=== PATIENT | female | born 1945 | race Caucasian/White ===

== ENCOUNTER 2020-02-26 06:17 | Emergency (ER) | payer MEDICARE, SELFPAY ==
--- NOTE | ~2020-02-26 | XR_ITS ---
EXAMINATION: XR chest 1V portable DATE: 02/26/2020 06:49 INDICATION: Cough, fever and chills TECHNIQUE: frontal view of the chest was obtained. COMPARISON: Chest radiograph dated 04/09/[address] dated 07/09/2019 FINDINGS: Calcified pleural plaques project over the bilateral mid lung zones. Chronic linear and bandlike disc oid atelectasis/scarring at the bilateral lower lung zones. There are few scattered calcified pulmona ry nodules along with calcified bilateral hilar and mediastinal lymph nodes consistent with old granu lomatous disease. The cardiomediastinal silhouette is normal. Atherosclerotic aorta. Moderate thoraci c and upper lumbar spondylosis. IMPRESSION: 1. Chronic opacities in the bilateral mid to lower lung zones corresponding to calcified pleural plaq ues and basilar atelectasis/scarring. No definitive acute cardiopulmonary disease. Reviewed, dictated and finalized at location A. IMPRESSION: 1. Chronic opacities in the bilateral mid to lower lung zones corresponding to calcified pleural plaques and basilar atelectasis/scarring. No definitive acute cardiopulmonary disease.
[2020-02-26 06:29] VITALS: BP 167/104; PULSE 119; RESP 15; TEMP 37.2; O2SAT 97
--- NOTE | 2020-02-26 06:38 | ED.FEVER ---
HPI - Fever General Chief Complaint: Fever Stated Complaint: fever, cough, chills Time Seen by Provider: 02/26/20 06:23 History of Present Illness HPI Narrative: Patient is a 74-year-old female who presents the ER with reports of fever. Ongoing for last 24 hours. Is high as 102 ?F. Associated with rigors of the last up to 20 minutes. She is treated her fever with Tylenol 500 mg and aspirin alternating. Patient reports that she has been having dysuria and urinary frequency for the last 2 weeks. She has been taking cranberry juice without relief of symptoms. Patient has history of COPD reports chronic cough and chronic shortness of breath. Neither of these symptoms have worsened. Patient reports she has not left her house since February 01 and the only contact she has had is a family member who dropped off groceries. No rhinorrhea/sore throat/myalgias. Related Data Allergies Allergy/AdvReac Type Severity Reaction Status Date / Time cefaclor Allergy Unknown Verified 09/17/16 17:02 felodipine Allergy Unknown Verified 09/17/16 17:02 levofloxacin Allergy Unknown Verified 09/17/16 17:02 verapamil Allergy Unknown Verified 09/17/16 17:02 MOXIFLOXACIN HCL Allergy Unknown Uncoded 09/17/16 17:02 Review of Systems Review of Systems: All systems reviewed & are unremarkable except as noted in HPI and below Constitutional: Constitutional: Reports chills and Reports fever(s) ENT: Denies nasal congestion and Denies sore throat Respiratory: Respiratory: Denies cough, Denies dyspnea and Denies wheezing Gastrointestinal: Gastrointestinal: Denies abdominal pain, Denies nausea and Denies vomiting Genitourinary: Genitourinary: Denies hematuria, Reports nocturia, Reports dysuria and Denies flank pain [facility] Past Medical History Medical History (Updated 02/26/20 @ 08:12 by Thad Rush MD) COPD (chronic obstructive pulmonary disease) Cystocele Diverticulitis Hypertension Rectocele Surgical History Surgical History (Updated 02/26/20 @ 06:42 by Thad Rush MD) H/O cardiac catheterization H/O: hysterectomy History of tonsillectomy Family History Family History (Updated 04/14/19 @ 11:46 by DOCTOR UNKNOWN) Mother Family history of diabetes mellitus in first degree relative Family history of heart disease in male family member before age 55 Patient's mother is Family history of emphysema Diabetes mellitus Family history of cardiovascular disease, Onset Age: 73 Acute myocardial infarction Father Patient's father is Family history of lung cancer Family history of malignant neoplasm, Onset Age: 36 Patient's father is in good health Sibling Patient's brother is Family history of lung cancer Family history of primary malignant neoplasm of liver Other Hypertension Social History Social History Smoking status: Heavy tobacco smoker Second hand tobacco smoke exposure: No Alcohol intake: never Exam Narrative: Exam Narrative: GENERAL: Well-appearing, well-nourished, and in no acute distress. HEAD: Normocephalic, atraumatic. CHEST: Clear to auscultation. No respiratory distress. HEART: Tachycardic and regular. Normal peripheral pulses. ABDOMEN: Soft, nontender, nondistended. No CVA tenderness. EXTREMITIES: Normal range of motion. No edema. SKIN: Warm, dry, no rash. NEURO: Alert and oriented x3. PSYCH: Normal mood and affect. Course [employer] Physician Supervision Informed of results. Tachycardia improved with IV fluid. First dose of Bactrim here, will have pt hold home BP meds due to potential elevation in k+. Discharge home. Vital Signs Vital signs: Vital Signs Temperature 98.9 F 02/26/20 06:29 Pulse Rate 119 H 02/26/20 06:29 Respiratory Rate 15 02/26/20 06:29 Blood Pressure 167/104 H 02/26/20 06:29 Pulse Oximetry 97 02/26/20 06:29 Temperature 98.9 F 02/26/20 06:29 Pulse Rate 119 H 02/26/20 06:29 Respirato
[2020-02-26 06:54] LABS: Basophils Absolute Auto 0.1 K/mm3 (0.0-0.1); Basophils Percent Auto 0.4 % (0.2-1.2); Eosinophils Percent Auto 0.3 % (0-4.4); Hematocrit 51.2 % (37.0-47.0); Hemoglobin 17.5 g/dL (12.0-15.0); Immature Granulocyte Absolute 0.05 K/mm3 (0.00-0.031); Immature Granulocyte Percent A 0.4 % (0-0.5); Lymphocytes Absolute Auto 1.59 K/mm3 (0.9-3.2); Mean Corpuscular HGB Conc 34.2 g/dl (32-36); Mean Corpuscular Hemoglobin 30.6 pg (26-34); Mean Corpuscular Volume 89.5 fl (80-100); Mean Platelet Volume 9.5 fl (7.4-10.4); Monocytes Absolute Auto 1.2 K/mm3 (0.1-0.6); Monocytes Percent Auto 10.7 % (2.6-8.5); Neutrophils Absolute Auto 8.5 K/mm3 (1.3-6.7); Neutrophils Percent Auto 74.2 % (45.5-73.1); Platelet Count Result 207 k/mm3 (150-375); Red Blood Count 5.72 M/mm3 (4.2-5.4); Red Cell Distribution Width 13.2 % (11.5-14.5); White Blood Count 11.4 K/mm3 (4.5-10.0)
[2020-02-26] MEDS: SODIUM CHLORIDE 0.9% IV 1,000 ML 999 ML IV CONT (06:56)
[2020-02-26 07:04] LABS: Add Urine Microscopic? YES; Appearance Urine Cloudy (Clear); Bacteria Urine 1+ /hpf; Bilirubin Urine Negative (Negative); Blood Urine 2+ (Negative); Color Urine Yellow (Yellow); Glucose Urine UA Negative (Negative); Ketones Urine Trace mg/dL (Negative); Leukocyte Esterase Ur 3+ LEU/UL (Negative); Nitrate Urine Negative (Negative); Protein Urine 2+ mg/dL (Negative); RBC Urine >75 /hpf (0-2); Specific Grav Ur 1.012 (1.001-1.035); Squamous Epithelial Cell Urine Many /hpf (Few); Urobilinogen Urine Negative mg/dL (<2.0); WBC Clumps Urine Present /HPF; WBC Urine >75 /hpf
[2020-02-26 07:08] LABS: Blood Urea Nitrogen 12 mg/dL (7-17); Calcium 9.5 mg/dL (8.4-10.2); Carbon Dioxide 29 mmol/L (22-30); Chloride 100 mmol/L (98-107); Estimated Glomerular Filt Rate > 60; Glucose 116 mg/dL (65-105); Potassium 3.8 mmol/L (3.4-5.0); Sodium 135 mmol/L (137-145)
[2020-02-26 08:22] VITALS: BP 137/77; PULSE 93; RESP 20; O2SAT 97
== END 2020-02-26 08:41 | disposition home or self-care (01) ==
PROVIDERS: Emergency Provider Emergency Medicine; PCP Family Medicine
DX: N39.0 Urinary tract infection, site not specified (principal); J44.9 Chronic obstructive pulmonary disease, unspecified; I10 Essential (primary) hypertension; F17.200 Nicotine dependence, unspecified, uncomplicated
CPT/HCPCS: 36415; 71045; 80048; 81001; 85025; 87077; 87086; 87088; 87186; 96360; 99283; A9270; J7030

== ENCOUNTER 2021-02-02 08:54 | Outpatient (CLI) | payer MEDICARE, SELFPAY ==
--- NOTE | ~2021-02-02 | XR_ITS ---
XR chest 2V 02/02/2021 09:12 Indication: Shortness of breath Procedure: PA and lateral views of the chest Comparison: 04/09/2017 Findings: Heart size is normal. There are bilateral pleural calcifications, consistent with previous asbestos exposure. There are a few scattered calcified pulmonary nodules, consistent with chronic gra nulomatous disease. There is atherosclerosis of the aorta. No acute focal air space disease, pulmonar y edema, pleural effusion or suspected pneumothorax. There are chronic infiltrates of the mid and low er lung zones. The lungs are hyperinflated which is consistent with, but not diagnostic of chronic ob structive pulmonary disease. Impression: 1: No acute cardiopulmonary disease. Reviewed, dictated and finalized at location B. Impression: 1: No acute cardiopulmonary disease.
== END 2021-02-02 08:55 | disposition home or self-care (01) ==
LOC: ANHIMG 09:01
PROVIDERS: PCP Family Medicine; Visit Provider Physician Assistant
DX: R06.02 Shortness of breath (principal); I70.0 Atherosclerosis of aorta
CPT/HCPCS: 71046

== ENCOUNTER 2021-03-01 07:25 | Outpatient (CLI) | payer MEDICARE, SELFPAY ==
--- NOTE | ~2021-03-01 | CT_ITS ---
EXAMINATION: CT lung screening DATE: 03/01/2021 07:51 INDICATION: Personal history of nicotine dependence TECHNIQUE: Computed tomography (CT) of the chest was performed without intravenous contrast. The dose -length product was 55.56 mGy-cm. Automated exposure control and iterative reconstruction technique w ere employed. COMPARISON: CT dated 07/09/2019 FINDINGS: There are small scattered calcified bilateral pleural plaques consistent with previous asbe stos exposure. There are scattered calcified pulmonary nodules, consistent with chronic granulomatous disease. There are calcified mediastinal and hilar lymph nodes, also consistent with chronic granulo matous disease. No significant pleural or pericardial effusion. No thoracic lymphadenopathy. There is a stable 7 mm fissural nodule on the right, likely benign. There is lower lobe bronchiectasis. There is lingular and bilateral lower lobe atelectasis. There is moderate emphysema. There is atherosclero sis of the aorta and coronary arteries. The upper abdomen is unremarkable. No lytic or blastic lesion s. IMPRESSION: 1. Lung-RADS category 2: Benign appearance or behavior. Continue annual screening with noncontrast lo w-dose chest CT in 12 months. Reviewed, dictated and finalized at location B. IMPRESSION: 1. Lung-RADS category 2: Benign appearance or behavior. Continue annual screeni ng with noncontrast low-dose chest CT in 12 months.
== END 2021-03-01 07:26 | disposition home or self-care (01) ==
PROVIDERS: PCP Family Medicine; Visit Provider Nurse Practitioner Family
DX: Z12.2 Encounter for screening for malignant neoplasm of respiratory organs (principal); Z87.891 Personal history of nicotine dependence
CPT/HCPCS: 71271

== ENCOUNTER 2021-04-28 06:34 | Outpatient (CLI) | payer MEDICARE, SELFPAY ==
--- NOTE | ~2021-04-28 | XR_ITS ---
EXAMINATION: XR abdomen/kub 1V INDICATION: Constipation TECHNIQUE: Supine view of the abdomen is obtained. COMPARISON: CT, 06/25/2016; radiograph, 05/06/2013 FINDINGS: A moderate volume of colonic stool is present. No dilated loops of bowel are evident. No fr ee intraperitoneal gas is identified. There is serpiginous left upper quadrant calcifications in asso ciation with the splenic artery. Lumbar levoscoliosis is noted. IMPRESSION: 1. Moderate volume of colonic stool. Reviewed, dictated and finalized at location A.
--- NOTE | ~2021-04-28 | XR_ITS ---
EXAMINATION: XR ribs LT 2V w CXR 2V INDICATION: Pleurodynia TECHNIQUE: PA and lateral views of the chest and 3 views of the left ribs were obtained. COMPARISON: 02/02/2021 FINDINGS: The lungs are free of acute opacities. There is no pleural effusion or pneumothorax. Areas of atelectasis/scarring are present in the lung bases. Calcified pleural plaques are noted. The heart size is normal. There is calcified atherosclerosis. There is moderate thoracic spondylosis. No displ aced rib fracture is identified. IMPRESSION: 1. No acute cardiopulmonary abnormality or evidence of displaced rib fracture. Reviewed, dictated and finalized at location A.
== END 2021-04-28 06:35 | disposition home or self-care (01) ==
LOC: ANHIMG 06:41
PROVIDERS: PCP Family Medicine; Visit Provider Physician Assistant
DX: R05 Cough (principal); R07.81 Pleurodynia; K59.00 Constipation, unspecified
CPT/HCPCS: 71046; 71100; 74018

== ENCOUNTER → 2021-06-09 07:13 | Outpatient (CLI) | payer MEDICARE, SELFPAY ==
--- NOTE | ~2021-06-09 | MR_ITS ---
EXAMINATION: MR pelvis wo/w con INDICATION: Rectal prolapse and pelvic pain TECHNIQUE: Coronal SSFSE ARC, Coronal, Axial, and Sagittal T2 FRFSE small [id number], Coronal 2D F IESTA FatSat, Axial SSFSE BH ARC, Axial 3D DualEcho BH, Axial STIR, Axial DWI b=500, pre and dynamic postcontrast Axial LAVA ARC COMPARISON: CT, 06/25/2016 CONTRAST: Multihance, 10 cc FINDINGS: There is a cystocele with the bladder prolapsed 11 cm below the pubococcygeal line. There i s a rectocele with the rectum prolapsed 14 cm below the pubococcygeal line. There is vaginal prolapse with the vagina prolapse the proximal 11 cm below the pubococcygeal line. There are no dilated bowel . No pathologically enlarged pelvic lymph nodes are identified. There is a fat-containing left inguin al hernia. A tiny right inguinal hernia containing fat is also noted. No abnormal enhancement is pres ent after contrast administration. IMPRESSION: 1. Severe pelvic floor relaxation with cystocele, rectocele, and vaginal prolapse. 2. Bilateral inguinal hernias containing fat. Reviewed, dictated and finalized at location A. IMPRESSION: 1. Severe pelvic floor relaxation with cystocele, rectocele, and vaginal prolap se. 2. Bilateral inguinal hernias containing fat.
[2021-06-09 08:20] LABS: Estimated Glomerular Filt Rate > 60
== END ==
PROVIDERS: PCP Family Medicine; Visit Provider Family Medicine
DX: K62.3 Rectal prolapse (principal); K40.20 Bilateral inguinal hernia, without obstruction or gangrene, not specified as recurrent
CPT/HCPCS: 72197; A9577